=== PATIENT | female | born 1980 | race Caucasian/White ===

== ENCOUNTER 2019-11-02 10:39 | Inpatient (IN) | payer OTHER ==
[~2019-11-02] VITALS: Ht 165.1 cm; Wt 80.4 kg
[~2019-11-02 10:39] MED LIST: ATARAX,VISTARIL50 MG PO; CARBIDOPA/LEVOD1 TA1 PO; GABAPENTIN100 M2 PO; IBU800 M1 PO; METHOCARBAMOL750 M1 PO; NATURE'S BLEND F1 MG PO; PRILOSEC20 M1 PO; PROZAC20 MG PO; SEROQUEL50 MG PO; SYNTHROID25 MCG PO; THERA TABS1 TAB PO; TRAZODONE50 MG PO; VITAMIN B-11 TAB PO; ZOFRAN 4 MG ED2 TAB PO
[2019-11-02 11:51] VITALS: BP 136/90
--- NOTE | 2019-11-02 11:59 | NUR ---
PATIENT MEETS [facility]. CINA=[id number]. PATIENT WANTS TO FOLLOW UP WITH AA/NA MEETINGSS IN HER LOCAL AREA. [facility] STAFF WILL PROVIDE PATIENT WITH [facility] REFERRAL OPTIONS AND A LIST A SELF-HELP MEETINGS. PATIENT REPORTS THAT FAMILY WILL PROVIDE TRANSPORTATION HOME AFTER DISCHARGE. DEANNA VALLADARES B.A. PADDING GLUER
[2019-11-02 12:00] VITALS: BP 136/90
[2019-11-02] MEDS ORDERED: KEFLEX500 M1 PO (12:22)
[2019-11-02] MEDS ORDERED: Bactroban Oint22 GM T (12:23)
[2019-11-02] MEDS ORDERED: BACTRIM 400-801 EACH PO (12:23)
--- NOTE | 2019-11-02 12:25 | NUR ---
39 year old FEMALE admitted to room # 426 for stabilization. 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 Patient denies any anxiety, but is unable to sit still, taps toes to floor continuously, looks about room, unable to focus eyes on nurse during interview. See assessment forms for additional information about patient status.
--- NOTE | 2019-11-02 12:47 | NUR ---
RESIDENTS NOTIFIED OF PT ADMISSION, ORDERS TO FOLLOW.
--- NOTE | 2019-11-02 14:03 | NUR ---
Nutritional Support Services Note: Dx of opiate withdrawal. Abscess noted to left arm. Regular diet as ordered. Encouraged good po intake of meals. Will provide a night snack. No other Nutrition interventin needed at this time. Will follow as needed. Libia Zabala Rdn Ld
[2019-11-02 15:30] LABS: BASO # 0.1 10*3/uL (0.0-0.1); BASO % 0.9 % (0.0-1.0); EOS # 0.2 10*3/uL (0.0-0.4); EOS % 3.6 % (1.0-4.0); HEMATOCRIT 44.4 % (37.0-47.0); LYMPH # 2.6 10*3/uL (1.3-4.4); LYMPH % 38.5 % (27.0-41.0); MEAN CELL VOLUME 78.4 fl (81.0-99.0); MEAN CORPUSCULAR HGB 24.4 pg (27.0-31.0); MEAN CORPUSCULAR HGB CONC 31.1 g/dl (33.0-37.0); MEAN PLATELET VOLUME 10.3 fl (9.6-12.3); MONO # 0.4 10*3/uL (0.1-1.0); MONO % 5.6 % (3.0-9.0); NEUT # 3.5 10*3/uL (2.3-7.9); NEUT % 51.3 % (47.0-73.0); PLATELET COUNT AUTOMATED 197 10*3/uL (130-400); RED BLOOD COUNT 5.66 10*6/uL (4.10-5.10); RED CELL DISTRI WIDTH 15.7 % (0-14.5); WHITE BLOOD COUNT 6.8 10*3/uL (4.8-10.8)
[2019-11-02 15:45] LABS: ALBUMIN 3.4 gm/dl (3.1-4.5); ALKALINE PHOSPHATASE 67 U/L (45-117); BUN 5 mg/dl (7-24); CHLORIDE 108 mmol/L (98-107); SGOT/AST 17 IU/L (3-35); SGPT/ALT 19 U/L (12-78); SODIUM 138 mmol/L (136-145); TOTAL PROTEIN 8.1 gm/dL (6.4-8.2)
[2019-11-02 15:53] LABS: ETHYL ALCOHOL < 3.0 mg/dl (<3)
[2019-11-02 16:00] VITALS: BP 137/67
[2019-11-02 16:33] LABS: BILIRUBIN NEGATIVE; BLOOD NEGATIVE (NEGATIVE); CLARITY CLOUDY (CLEAR); COLOR YELLOW (YELLOW); GLUCOSE NEGATIVE; KETONE NEGATIVE; LEUKO ESTERASE NEGATIVE (NEGATIVE); NITRITE NEGATIVE (NEGATIVE); SPECIFIC GRAVITY 1.025 (1.001-1.030)
[2019-11-02 16:36] LABS: URINE AMPHETAMINES < 1000 (1000ng/ml); URINE BARBITURATES > 200 (200ng/ml); URINE BENZODIAZEPINES > 200 (200ng/ml); URINE CANNABINOIDS (THC) < 50 (50ng/ml); URINE COCAINE < 300 (300ng/ml); URINE METHADONE > 300 (300ng/ml); URINE OPIATES < 300 (300ng/ml)
[2019-11-02 16:37] LABS: URINE PHENCYCLIDINE < 25 (25ng/ml)
[2019-11-02 16:52] LABS: BACTERIA 1+; CALCIUM OXALATE CRYSTALS 3+
[2019-11-02 16:53] LABS: MUCOUS TRACE
--- NOTE | 2019-11-02 18:19 | NUR ---
MEDICATED WITH ROBAXIN,VISTARIL, REQUIP FOR COMPLAINTS OF ANXIETY, RESTLESS LEG, AND NERVOUSNESS. INTO SHOWER.
--- NOTE | 2019-11-02 19:01 | NUR ---
DR. AWAN NOTIFIED OF PATIENT COMING TO DESK AND STATING " YOU HAVE TO DO SOMETHING." "I FEEL LIKE MY LEGS ARE GOING TO GIVE OUT ON ME."
[2019-11-02 20:00] VITALS: BP 140/90
--- NOTE | 2019-11-02 20:46 | NUR ---
Patient reports the following symptoms of withdrawal: body aches, leg pain, nausea and cocaine cravings. Patient given scheduled/PRN medication to control withdrawal symptoms. Close observation will be maintained. PRN MEDS GIVEN, TRAZADONE, LIBRIUM.
--- NOTE | 2019-11-02 22:09 | NUR ---
24 HR chart check completed.
--- NOTE | 2019-11-02 23:13 | NUR ---
Patient restless, not sleeping. Patient reports withdrawl symptoms. Vistaril, trazadone, robaxin given. Will monitor and reassess.
[2019-11-03] VITALS: BP 119/64
--- NOTE | 2019-11-03 00:35 | NUR ---
Patient still restless, up walking the halls. Prn meds not effective.
--- NOTE | 2019-11-03 00:44 | NUR ---
Early dose of requip given, due to patient stating she throw up the first does at 1816, and her legs are very restless and she isnt able to sleep.
--- NOTE | 2019-11-03 02:45 | NUR ---
No prn meds effective for patients withdrawl symptoms. Notified Dr. Joyner and new order received.
--- NOTE | 2019-11-03 03:06 | NUR ---
IM ativan given. Will monitor effects.
--- NOTE | 2019-11-03 04:00 | NUR ---
Patient finally resting, ativan effective.
[2019-11-03 08:00] VITALS: BP 94/54
[2019-11-03 12:00] VITALS: BP 111/63
--- NOTE | 2019-11-03 12:00 | NUR ---
Patient displaying withdrawal symptoms, including: irritability, anxiousness, restlessness, LEG PAIN, AND NAUSEA Patient scores a 5 on the withdrawal scale. Scheduled/PRN medications provided, doctor notified of patient's agitation and AMA potential. Will continue to monitor medication effectiveness.
--- NOTE | 2019-11-03 14:05 | NUR ---
ATIVAN 1MG IM GIVEN PER PATIENT REQUEST FOR ANXIETY.
[2019-11-03 16:00] VITALS: BP 107/53
--- NOTE | 2019-11-03 16:00 | NUR ---
PATIENT VOICED NO COMPLAINTS DURING ASSESSMENT.
[2019-11-03 20:00] VITALS: BP 114/73
--- NOTE | 2019-11-03 21:43 | NUR ---
PATIENT MEDICATED WITH ZOFRAN AND ROBAXIN FOR WITHDRAWAL SYMPTOMS. WILL MONITOR
--- NOTE | 2019-11-03 21:51 | NUR ---
PATIENT MEDICATED WITH IM ATIVAN FOR AGITATION/ANXIOUSNESS. ATTEMPT TO TRY BENADRYL/VISTARIL COMBO PRIOR TO ATIVAN ADMINISTRATION. PATIENT STATES THAT THEY ARE NOT EFFECTIVE FOR HER. WILL CONTINUE TO MONITOR
--- NOTE | 2019-11-03 21:55 | NUR ---
PATIENT MEDICATED WITH TRAZODONE FOR C/O INSOMNIA. WILL MONITOR
--- NOTE | 2019-11-03 22:55 | NUR ---
TRAZODONE NOT EFFECTIVE AT THIS TIME
--- NOTE | 2019-11-03 23:59 | NUR ---
PATIENT MEDICATED WITH REQUIP FOR RESTLESS LEGS. WILL MONITOR
--- NOTE | 2019-11-04 00:59 | NUR ---
REQUIP APPEARS EFFECTIVE.
--- NOTE | 2019-11-04 02:13 | NUR ---
INFORMED THAT PATIENT CALLED NURSE INTO ROOM, STATES THAT SHE CANT FALL ASLEEP. SHE IS STILL HAVING RESTLESS LEG, BELIEVES TRAZODONE IS CAUSING IT AND IS NOT EFFECTIVE, REFUSING VISTARIL AND BENADRYL, STATES THAT ITS NOT GOING TO WORK D/T THAT AMOUNT OF DRUGS THAT SHE TAKES. PATIENT STATES "ANGELIQUE HAD TO TAKE PHENOBARB BEFORE FOR MY WITHDRAWAL SYMPTOMS JUST TO SLEEP." DOCTOR STATES SHE IS NOT GETTING PHENOBARB. STATES HE WILL PLACE ORDER FOR IM ATIVAN.
--- NOTE | 2019-11-04 02:29 | NUR ---
PATIENT MEDICATED WITH X1 DOSE OF IM ATIVAN. WILL MONITOR
--- NOTE | 2019-11-04 03:29 | NUR ---
ATIVAN APPEARS EFFECTIVE. PATIENT RESTING QUIETLY
--- NOTE | 2019-11-04 04:35 | NUR ---
INFORMED THAT PATIENT CALLED NURSE INTO ROOM STATED SHE CANT FALL ASLEEP HER HEART RATE IS POUNDING. LISTENED TO HEART SOUND, NORMAL S1 S2, IN THE 70'S. BP OF 120/72 AN SPO2 OF 94% ROOM AIR. PATIENT STATES SHE HAS MID-STERNAL CHEST PAIN 09/06 AND STATED THAT LAST MONTH HAD CHAD THAT SHOWED VEGETATION TO PACEMAKER LEAD, UNSURE IF TISSUE INVOLVED, FORMING TUBE SELECTOR NOT CONCERNED. DOCTOR STATES TO PLACE ORDER SET OF TROP AND EKG
[2019-11-04 08:00] VITALS: BP 112/69; BP 138/80
--- NOTE | 2019-11-04 08:39 | NUR ---
PRN VISTARIL GIVEN FOR ANXIETY AND NICOTINE INHALER GIVEN AT THIS TIME WELL.
--- NOTE | 2019-11-04 09:39 | NUR ---
PER PT, VISTARIL AND NICOTINE WAS EFFECTIVE.
--- NOTE | 2019-11-04 10:43 | NUR ---
LAST TROPONIN IS DUE TO BE DRAWN, PT REFUSING. WILL BE DISCHARGED SOON, WILL NOTIFY .
--- NOTE | 2019-11-04 10:44 | NUR ---
PT REQUESTING PRN ATIVAN FOR ANXIETY, ONE ON ONE REFUSED.
--- NOTE | 2019-11-04 11:30 | NUR ---
PT REPORTS PRN ATIVAN EFFECTIVE.
--- NOTE | 2019-11-04 12:52 | NUR ---
PT REFUSING DISCHARGE WOUND PICS.
--- NOTE | 2019-11-04 13:02 | NUR ---
Patient discharged in stable condition, referral letter provided to patient with specific instructions and appointment for ongoing treatment. Patient verbalizes understanding of discharge plan.
== END 2019-11-04 13:22 | disposition home or self-care (01) | DRG 773 ==
LOC: 4E 10:39
PROVIDERS: Internal Medicine; ADMIT Emergency Medicine; ATTEND Emergency Medicine
DX: F11.23 Opioid dependence with withdrawal (principal); I38 Endocarditis, valve unspecified; F41.9 Anxiety disorder, unspecified; K21.9 Gastro-esophageal reflux disease without esophagitis; I10 Essential (primary) hypertension; R71.8 Other abnormality of red blood cells; E87.8 Other disorders of electrolyte and fluid balance, not elsewhere classified; F17.210 Nicotine dependence, cigarettes, uncomplicated; E89.0 Postprocedural hypothyroidism; Z86.19 Personal history of other infectious and parasitic diseases; Z98.51 Tubal ligation status; Z95.2 Presence of prosthetic heart valve; Z95.0 Presence of cardiac pacemaker; Z82.49 Family history of ischemic heart disease and other diseases of the circulatory system; Z80.9 Family history of malignant neoplasm, unspecified; Z71.6 Tobacco abuse counseling; Z79.899 Other long term (current) drug therapy